=== PATIENT | male | born 1970 | race Caucasian/White ===

== ENCOUNTER → 2020-01-27 12:01 | Outpatient (CLI) | payer BC, SELFPAY ==
[2020-01-27 12:13] LABS: Adenovirus,PCR Not Detected (NotDetected); Bordetella Pertussis Not Detected (NotDetected); Chlamydophila Pneumoniae, PCR Not Detected (NotDetected); Coronavirus 229E Not Detected (NotDetected); Coronavirus NL63 Not Detected (NotDetected); Coronavirus OC43 Not Detected (NotDetected); Coronovirus HKU1,PCR Not Detected (NotDetected); Human Metapneumovirus Not Detected (NotDetected); Influenza A, PCR Not Detected (NotDetected); Influenza AH1, 2009 Not Detected (NotDetected); Influenza AH1, PCR Not Detected (NotDetected); Influenza AH3,PCR Not Detected (NotDetected); Influenza B, PCR Not Detected (NotDetected); Mycoplasma Pneumoniae, PCR Not Detected (NotDetected); Parainfluenza 1, PCR Not Detected (NotDetected); Parainfluenza 2, PCR Not Detected (NotDetected); Parainfluenza 3, PCR Not Detected (NotDetected); Parainfluenza 4, PCR Not Detected (NotDetected); Respiratory Syncytial Virus Not Detected (NotDetected); Rhinovirus/Enterovirus Not Detected (NotDetected)
[2020-01-27 12:19] LABS: Microscopic, Urine URINE MICROSCOPIC (MICROSCOPIC)
[2020-01-27 13:03] LABS: Basophils # 0.1 K/mm3 (0-0.2); Basophils % 0.8 % (0.1-2.0); Eosinophils # 0.1 K/mm3 (0.0-0.4); Eosinophils % 1.4 % (0.1-12.0); Hematocrit 46.9 % (42.0-52.0); Hemoglobin 16.2 g/dL (14.1-18.0); Lymphocytes # 1.4 K/mm3 (0.7-4.5); Mean Corpuscular HGB Conc 34.5 g/dL (31.8-35.4); Mean Corpuscular Hemoglobin 31.3 pg (27.0-31.2); Mean Corpuscular Volume 90.7 fl (80-94); Mean Platelet Volume 7.5 fl (7.4-10.4); Monocytes # 0.4 K/mm3 (0.1-1.0); Neutrophils % 66.8 % (37.0-80.0); Platelet Count 265 K/mm3 (142-424); Red Blood Count 5.17 M/mm3 (4.60-6.20)
[2020-01-27 14:17] LABS: Appearance,Urine CLEAR (Clear); Bilirubin,Urine Negative (Negative); Blood, Urine Negative (Negative); Color,Urine YELLOW (Yellow); Glucose,Urine (UA) Negative (Negative); Ketones,Urine Negative (Negative); Leukocyte Esterase,Urine Negative (Negative); Nitrate,Urine Negative (Negative); Protein,Urine Negative (Negative); Specific Gravity, Urine 1.015 (1.005-1.030); Urobilinogen,Urine 0.2 EU/dl (0.2)
[2020-01-27 14:22] LABS: Alanine Aminotransferase 16 U/L (12-78); Albumin Level 4.4 g/dl (3.5-5.0); Albumin/Globulin Ratio 1.4 (1.1-1.8); Alkaline Phosphatase 63 U/L (38-126); Anion Gap 11.5 mEq/L (5-15); Aspartate Amino Transferase 23 U/L (17-59); Blood Urea Nitrogen 14 mg/dl (9-20); Calcium 9.4 mg/dl (8.4-10.2); Carbon Dioxide 31 mmol/L (22.0-30.0); Chloride 100 mmol/L (98-107); Estimated Glomerular Filt Rate 102 ml/min (>60); GFR (African American) 124 ML/MIN (>60); Globulin 3.1 g/dL (1.3-3.2); Glucose 98 mg/dl (74-100); Potassium 4.5 mmoL/L (3.5-5.1); Sodium 138 mmol/L (136-145); Total Protein,Serum 7.5 g/dl (6.3-8.2)
[2020-01-27 14:28] LABS: C-Reactive Protein 1.5 mg/L (0-4)
[2020-01-27 14:37] LABS: Hemoglobin A1C 5.2 % (4.0-6.0)
[2020-01-27 14:38] LABS: Squamous Epithelial Cell,Urine Occasional #/hpf (0-5)
[2020-01-27 14:39] LABS: Free Thyroxine Index 3.1 ug/dL (5.93-13.13); T4 (Thyroxine) 8.6 ug/dl (5.53-11.0); Triiodothryronine (T3) Uptake 36 % (23.5-40.5)
[2020-01-27 14:40] LABS: 25-OH Vitamin D, Total 25.7 ng/mL (30-100)
[2020-01-27 14:53] LABS: Thyroid Stimulating Hormone 1.17 uIU/mL (0.465-4.68)
[2020-01-27 15:02] LABS: Erythrocyte Sedimentation Rate 19 mm/hr (0-15)
[2020-01-27 16:24] LABS: Vitamin B12 237 pg/mL (239-931)
[2020-01-28 08:32] LABS: Coronavirus 19 IgG Antibody Negative (Negative); Coronavirus 19 IgM Antibody Negative (Negative)
== END ==
PROVIDERS: PCP Internal Medicine Adolescent Medicine; Visit Provider Internal Medicine Adolescent Medicine
DX: Z03.818 Encounter for observation for suspected exposure to other biological agents ruled out (principal); G60.9 Hereditary and idiopathic neuropathy, unspecified; E55.9 Vitamin D deficiency, unspecified
CPT/HCPCS: 36415; 80053; 81001; 82306; 82607; 83036; 84436; 84443; 84479; 85025; 85651; 86140; 86328; 87486; 87581; 87633; 87798; U0003

== ENCOUNTER → 2020-04-17 07:29 | Outpatient (CLI) | payer BC, SELFPAY ==
[2020-04-17 08:31] LABS: Basophils % 0.8 % (0.1-2.0); Eosinophils # 0.1 K/mm3 (0.0-0.4); Eosinophils % 2.5 % (0.1-12.0); Hematocrit 45.6 % (42.0-52.0); Hemoglobin 15.3 g/dL (14.1-18.0); Lymphocytes # 1.5 K/mm3 (0.7-4.5); Lymphocytes % 32.4 % (10-50); Mean Corpuscular HGB Conc 33.5 g/dL (31.8-35.4); Mean Corpuscular Hemoglobin 30.5 pg (27.0-31.2); Mean Corpuscular Volume 91.2 fl (80-94); Mean Platelet Volume 7.4 fl (7.4-10.4); Monocytes # 0.3 K/mm3 (0.1-1.0); Neutrophils # 2.7 K/mm3 (1.8-7.8); Neutrophils % 57.3 % (37.0-80.0); Platelet Count 230 K/mm3 (142-424); White Blood Count 4.7 K/mm3 (4.8-10.8)
[2020-04-17 08:53] LABS: Alanine Aminotransferase 18 U/L (12-78); Albumin Level 4.3 g/dl (3.5-5.0); Albumin/Globulin Ratio 1.4 (1.1-1.8); Alkaline Phosphatase 58 U/L (38-126); Anion Gap 7.2 mEq/L (5-15); Aspartate Amino Transferase 26 U/L (17-59); Bilirubin,Total 1.1 mg/dl (0.2-1.3); Blood Urea Nitrogen 15 mg/dl (9-20); Calcium 9.4 mg/dl (8.4-10.2); Carbon Dioxide 31 mmol/L (22.0-30.0); Chloride 104 mmol/L (98-107); Chol/HDL Ratio 3.9 (1-3.5); Cholesterol 205 mg/dl (140-200); Estimated Glomerular Filt Rate 89 ml/min (>60); GFR (African American) 108 ML/MIN (>60); Glucose 115 mg/dl (74-100); HDL Cholesterol 53 mg/dl (40-60); Potassium 4.2 mmoL/L (3.5-5.1); Sodium 138 mmol/L (136-145); Total Protein,Serum 7.3 g/dl (6.3-8.2); Triglycerides 132 mg/dl (30-150); VLDL Cholesterol 26 mg/dL (0-40)
[2020-04-17 09:05] LABS: Direct LDL Cholesterol 127.71 mg/dL (100-129)
[2020-04-17 09:24] LABS: Prostate Specific Ag Screen 0.8 ng/ml (0.0-4.0)
[2020-04-17 09:42] LABS: Vitamin B12 458 pg/mL (239-931)
== END ==
PROVIDERS: Visit Provider Internal Medicine Adolescent Medicine
DX: Z00.00 Encounter for general adult medical examination without abnormal findings (principal); E53.8 Deficiency of other specified B group vitamins
CPT/HCPCS: 36415; 80053; 80061; 82607; 85025; G0103

== ENCOUNTER → 2020-04-23 10:01 | Outpatient (CLI) | payer BC, SELFPAY ==
[2020-04-23 10:51] LABS: Hemoglobin A1C 5.4 % (4.0-6.0)
== END ==
PROVIDERS: Visit Provider Internal Medicine Adolescent Medicine
DX: R73.09 Other abnormal glucose (principal)
CPT/HCPCS: 36415; 83036

== ENCOUNTER → 2020-05-12 08:53 | Outpatient (POV) | payer BC, SELFPAY | PROVIDERS: Visit Provider Dermatology | DX: Z00.00 Encounter for general adult medical examination without abnormal findings (principal) ==

== ENCOUNTER → 2021-07-22 15:26 | Outpatient (CLI) | payer BC, SELFPAY ==
--- NOTE | 2021-07-22 15:35 | XR_ITS ---
FINAL REPORT CLINICAL HISTORY: LEFT FOOT PAIN NEAR 2ND AND 3RD METATARSALS FINDINGS: LEFT FOOT Three views were obtained. There is no acute fracture or dislocation. There are mild degenerative changes. A plantar calcaneal spur is noted. No soft tissue abnormality is identified. IMPRESSION: No acute process. Reviewed, Interpreted and Dictated by Ric Snow III, MD Transcribed by Maribel Berger Authenticated by Ric Snow III, MD on 07/22/2021 04:49:18 PM [facility]
== END ==
PROVIDERS: PCP Internal Medicine Adolescent Medicine; Visit Provider Internal Medicine Adolescent Medicine
DX: M79.672 Pain in left foot (principal)
CPT/HCPCS: 73630

== ENCOUNTER → 2021-09-21 10:00 | Outpatient (CLI) | payer BC, SELFPAY ==
[2021-09-21 10:39] LABS: Basophils # 0.1 K/mm3 (0-0.2); Basophils % 1.5 % (0.1-2.0); Eosinophils # 0.1 K/mm3 (0.0-0.4); Eosinophils % 1.9 % (0.1-12.0); Hematocrit 49.1 % (42.0-52.0); Hemoglobin 16.2 g/dL (14.1-18.0); Lymphocytes # 1.2 K/mm3 (0.7-4.5); Lymphocytes % 28.4 % (10-50); Mean Corpuscular Volume 93.9 fl (80-94); Mean Platelet Volume 8.3 fl (7.4-10.4); Monocytes # 0.3 K/mm3 (0.1-1.0); Monocytes % 7.5 % (1.7-9.3); Neutrophils # 2.6 K/mm3 (1.8-7.8); Neutrophils % 60.7 % (37.0-80.0); Platelet Count 246 K/mm3 (142-424); Red Blood Count 5.23 M/mm3 (4.60-6.20); Red Cell Distribution Width 13.6 % (11.5-17.5); White Blood Count 4.3 K/mm3 (4.8-10.8)
[2021-09-21 11:18] LABS: Alanine Aminotransferase 18 U/L (12-78); Albumin Level 4.3 g/dl (3.5-5.0); Albumin/Globulin Ratio 1.4 (1.1-1.8); Alkaline Phosphatase 62 U/L (38-126); Anion Gap 11.7 mEq/L (5-15); Aspartate Amino Transferase 26 U/L (17-59); Blood Urea Nitrogen 13 mg/dl (9-20); Calcium 9.3 mg/dl (8.4-10.2); Carbon Dioxide 27 mmol/L (22.0-30.0); Chloride 104 mmol/L (98-107); Chol/HDL Ratio 4.1 (1-3.5); Cholesterol 204 mg/dl (140-200); Estimated Glomerular Filt Rate 102 ml/min (>60); GFR (African American) 123 ML/MIN (>60); Globulin 3.1 g/dL (1.3-3.2); Glucose 111 mg/dl (74-100); HDL Cholesterol 50 mg/dl (40-60); Potassium 4.7 mmoL/L (3.5-5.1); Sodium 138 mmol/L (136-145); Total Protein,Serum 7.4 g/dl (6.3-8.2); Triglycerides 116 mg/dl (30-150); VLDL Cholesterol 23 mg/dL (0-40)
[2021-09-21 11:29] LABS: Direct LDL Cholesterol 119.85 mg/dL (100-129)
[2021-09-21 11:35] LABS: Free Thyroxine Index 3.4 ug/dL (5.93-13.13); T4 (Thyroxine) 10.2 ug/dl (5.53-11.0); Triiodothryronine (T3) Uptake 33 % (23.5-40.5)
[2021-09-21 11:36] LABS: 25-OH Vitamin D, Total 40.8 ng/mL (30-100)
[2021-09-21 12:10] LABS: Vitamin B12 216 pg/mL (239-931)
== END ==
PROVIDERS: PCP Internal Medicine Adolescent Medicine; Visit Provider Internal Medicine Adolescent Medicine
DX: Z00.00 Encounter for general adult medical examination without abnormal findings (principal); E55.9 Vitamin D deficiency, unspecified; E53.8 Deficiency of other specified B group vitamins
CPT/HCPCS: 36415; 80053; 80061; 82306; 82607; 84436; 84443; 84479; 85025

== ENCOUNTER → 2023-04-17 13:34 | Outpatient (CLI) | payer BC, SELFPAY | PROVIDERS: PCP Internal Medicine Adolescent Medicine; Visit Provider Internal Medicine Adolescent Medicine | DX: G47.33 Obstructive sleep apnea (adult) (pediatric) (principal); R06.83 Snoring; R40.0 Somnolence | CPT/HCPCS: G0399 ==

== ENCOUNTER 2024-10-10 13:59 | Outpatient (CLI) | payer BC, SELFPAY ==
--- OUTSIDE RECORDS SUMMARY | 2024-04-13 17:30 | XMS_ITS ---
Author Organization [facility] Address [address] [place] [address] Care Team Providers Care Svp Research And Strategic Analysis Name Role Phone AGUSTIN DO, DONAL Unavailable Unavailable Migration, Provider Unavailable Unavailable REASON FOR VISIT Multum To Medispan Conversion Encounter Medications Medication SIG (Take, Route, Frequency, Duration) Notes Start Date End Date Status Amoxicillin-Pot Clavulanate 875-125 MG 1 tab(s) orally every 12 hours; Duration: 10 day(s) 11/25/2013 Active Cyanocobalamin 1000 MCG/ML 0 intramuscularly once a month Active Medrol DIRECTED ORAL; Duration: 5 DAYS *Please review and pick correct strength-formulat ion from Medispan options. If intended option is not shown, discontinue and re-order from Quick Search* 11/25/2013 Active Encounters Encounter Location Date Provider Diagnosis [facility] [address] [place] [phone] 04/13/2024 Provider Migration Acute sinusitis NOS 461.9 and Dysfunction of eustachian tube 381.81 Assessments Encounter Date Diagnosis (ICD Code) Assessment Notes Treatment Notes Treatment Clinical Notes Section Notes 04/13/2024 Acute sinusitis NOS (ICD9-CM - 461.9) 04/13/2024 Dysfunction of eustachian tube (ICD9-CM - 381.81) Plan Of Treatment Medication Medication Name Sig Start Date Stop Date Notes Amoxicillin-Pot Clavulanate 875-125 MG 1 tab(s) orally every 12 hours; Duration: 10 day(s) 11/25/2013 Medrol DIRECTED ORAL; Duration: 5 DAYS 11/25/2013 *Please review and pick correct strength-formulation from Medispan options. If intended option is not shown, discontinue and re-order from Quick Search* Progress Notes * KANDICE DENIS EDOB: [birth year] (54 yo M)Acc No.[id number]:04/13/2024 Patient: KANDICE ISAAC Provider: Kourtney Morris :1970 A ge:54 Y S ex:Male Date:04/13/2024 Address:[place] [address], [id number] Subjective: * Chief Complaints: * 1 . Multum To Medispan Conversion Encounter. * Medical History: * Medications: T aking Cyanocobalamin 1000 MCG/ML Solution 0 intramuscularly once a month Objective: * Vitals: Assessment: * Assessment: 1. A cute sinusitis NOS - 461.9 (Primary) 2 . D ysfunction of eustachian tube - 381.81 Plan: * Treatment: 2. D ysfunction of eustachian tube Start Medrol, DIRECTED, ORAL, 5 DAYS, 1, Refills 0, Notes to Pharmacist: *Please review and pick correct [facility]. If intended option is not shown, discontinue and re-order from Quick Search*. * Billing Information: * Visit Code: * Procedure Codes: * Electronic signature of Prov ider Migration on 10/10/2024 at 02:02 PM EDT Sign off status: Pending * Provider: Kourtney Morris Date: 04/13/2024 Generated for Kitty paige/Laura/Evyitting on: 0 10/10/2024 02:02 PM EDT
--- OUTSIDE RECORDS SUMMARY | 2024-10-10 14:03 | XMS_ITS | Clinical Summary ---
[facility] Address [address] [place] [address] Care Team Providers Care Ldr Rn Name Role Phone Sandeep Polo MD Primary Care Provider [phone] Allergies No known active allergies Medications atorvastatin (LIPITOR) 80 MG tablet Take 1 tablet by mouth Every Night. 90 tablet 03/12/2023 Active aspirin 81 MG EC tablet Take 1 tablet by mouth Daily. 90 tablet 03/12/2023 Active Active Problems Problem Noted Date Diagnosed Date B12 deficiency 03/11/2023 Pernicious anemia 03/11/2023 Resolved Problems Problem Noted Date Diagnosed Date Resolved Date Left upper extremity numbness 03/11/2023 03/12/2023 Numbness and tingling of left side of face 03/11/2023 03/12/2023 Social History Tobacco Use Types Packs/Day Years Used Date Smoking Tobacco: Never Smokeless Tobacco: Never Tobacco Cessation:Counseling Given: Not Answered Alcohol Use Standard Drinks/Week Comments Yes 0 (1 standard drink = 0.6 oz pur e alcohol) AUDIT-C Answer Date Recorded Q1: How often do you have a drink containing alc ohol? 2-3 times a week 03/11/2023 Q2: How many drinks containi ng alcohol do you have on a typical day when you are drinking? 1 or 2 03/11/2023 Q3: How often do you have si x or more drinks on one occasion? Never 03/11/2023 Abuse Screen Answer Date Recorded Feels Unsafe at Home or Work/School no 03/11/2023 Feels Threatened by Someone no 02/12 Does Anyone Try to Keep You From Having Contact with Others or Doing Things Outside Your Home? no 03/11/2023 Physical Signs of Abuse Present no 03/11/2023 Housing Stability Answer Date Recorded Current Living Arrangements home 02/12 Potentially Unsafe Housing Conditions Not on guera e 03/11/2023 Family and Community Support Answer Shoaib e Recorded Help with Day-to-Day Activities Not on file 12/21/2022 Lonely or Isolated Not on file 12/21/2022 Employment Answer Date Recorded Do you want help finding or keeping work or a regine b? Not on file 12/21/2022 Disabilities Answer Date Recorded Difficulty Concentrating, Remembering or Making Decisions no 03/11/2023 Difficulty Managing Errands Independently no 03/11/2023 Education Answer Date Recorded Help with school or training? Not on file Preferred Language Not on file 12/21/2022 Sex and Gender Information Value Date Recorded Sex Assigned at Not on file Legal Sex Male 11:07 AM EST Gender Identity Not on file Sexual Orientation Not on file Last Filed Vital Signs Vital Sign Reading Time Taken Comments Blood Pressure 140/91 03/12/2023 10:40 AM EST Pulse 76 03/12/2023 10:40 AM EST Temperature 36.6 C (97.8 F) 03/12/2023 7:54 AM EST Respiratory Rate 16 03/12/2023 10:40 AM EST Oxygen Saturation 95% 03/12/2023 3:38 AM EST Inhaled Oxygen Concentration - - Weight 127 kg (280 lb) 03/11/2023 5:06 PM EST Height 185.4 cm (6' 1 ) 03/11/2023 5:06 PM EST Body Mass Index 36.94 03/11/2023 5:06 PM EST Plan of Treatment Health Maintenance Due Date Last Done Comments ANNUAL PHYSICAL 1970 HEPATITIS C SCREENING 1970 TDAP/TD VACCINES (1 - Tdap) 1989 COLOGUARD 2015 COLON CANCER SCREENING 5 YEA R SIGMOIDOSCOPY 2015 COLONOSCOPY [address] CANCER SCREENING [address] COLONOGRAPHY 2015 FECAL OCCULT BLOOD TEST 2015 FIT Testing (1 year) 2015 Pneumococcal Vaccine 50+ (1 of 1 - PCV) 01/02/2020 ZOSTER VACCINE (1 of 2) 01/02/2020 COVID-19 Vaccine (4 2023-2 5 season) 2023 01/20/2021, 05/01/2020, 04/01/2020 INFLUENZA VACCINE 12/11/2024 01/18/2022, , 12/30/2019, Additional history exists Insurance [place] [id number] [employer] Advance Directives * CPR (Attempt to Resuscitate) (Latest Code Status on File) Date Activated Date Inactivated Comments 03/11/2023 1:05 PM 03/12/2023 8:10 PM Question Answer Comments Code Status (Patient has no pulse and is not breathing): CPR (Attempt to Resuscitate) Medical Interventions (Patie nt has pulse or is breathing): Full Support Level Of Support Discussed With: Patient Care Teams Ldr Rn Relationship Specialty Start Date End Date Sandeep Polo MD [address] [facility] [address] [place] [address] PCP - General Adolescent Medicine 03/11/23
--- OUTSIDE RECORDS SUMMARY | 2024-10-10 14:03 | XMS_ITS | Encounter Summary ---
Author Organization [facility] Address [address] [place] [address] Care Team Providers Care [employer]oured [employer] Officer Name Role Phone [place], Eliot Regalado DO Primary Care Provider [phone] Reason for Referral * Consultation (Routine) - Closed Specialty Diagnoses / Procedures Referred By Huan t Referred To Contact Cardiology Diagnoses Systolic congestive heart failure, unspecified HF chronicity (CMS/HCC) Sandeep Polo MD [address] [facility] [address] [place] [address] Phone: tel: fax: Referral ID Status Reason Start Date Expiration Date V isits Requested Visits Authorized [id number] Closed Specialty Services Required 03/14/2023 09/12/2024 1 1 Encounter Details Date Type Department Care Team (Late st Contact Info) Description 03/14/2023 Community [facility] [address] [place] [address] Sandeep Polo MD [address] [address] Systolic congestive heart failure, unspecified HF chronicity (CMS/HCC) (Primary Dx) Social History Tobacco Use Types Packs/Day Years Used Date Smoking Tobacco: Never Alcohol Use Standard Drinks/Week Comments Not Currently 0 (1 standard drink = 0.6 oz pure alcohol) Alcoholic Drinks/day: Former consumption of alcohol Sex and Gender Information Value Date Recorded Sex Assigned at Not on file Legal Sex Male 7:47 PM EDT Gender Identity Not on file Sexual Orientation Not on file documented as of this encounter Plan of Treatment Scheduled Referrals Name Type Priority Associated Diagnoses Orde r Schedule Ambulatory referral to Cardiology Outpatient Referral Routine Systolic congestive heart failure, unspecified HF chronicity (CMS/HCC) Expected: 03/14/2023 (Approximate), Expires: 09/11/2024 documented as of this encounter Visit Diagnoses Diagnosis Systolic congestive heart failure, unspecified HF chronicity (CMS/HCC)- Primary documented in this encounter Care Teams [employer] Officer Relationship Specialty Start Date End Date Eliot [place] [address] PCP - General 07/24/20 documented as of this encounter
--- OUTSIDE RECORDS SUMMARY | 2024-10-10 14:03 | XMS_ITS | Encounter Summary ---
Author Organization Healthcare Address [address] [id number] Care Team Providers Care Supervisor Modern Languages Name Role Phone Eliot Alfonso DO Primary Care Provider [phone] Encounter Details Date Type Department Care Team (Late st Contact Info) Description 03/11/2023 Orders Only External Location [address] [place] [address] Bill Tierney MD [address] [place] [address] Social History Tobacco Use Types Packs/Day Years [...] as of this encounter Plan of Treatment Not on file documented as of this encounter Procedures Procedure Name Priority Date/Time Associated Diagnosis Comments CT NEURO OUTSIDE IMAGES 03/11/2023 11:49 AM EST documented in this encounter Results * CT NEURO OUTSIDE IMAGES (03/11/2023 11:49 AM EST) Anatomical Region Laterality Modality Computed Tomogra phy 03/11/2023 11:4 9 AM EST us Bill Tierney MD IMG CT PROCEDURES Final Result documented in this encounter Visit Diagnoses Not on filedocumented in this encounter Care Teams Supervisor Modern Languages Relationship Specialty Start Date End Date [place] [address] PCP - General 07/24/20 documented as of this encounter
--- OUTSIDE RECORDS SUMMARY | 2024-10-10 14:03 | XMS_ITS | Encounter Summary ---
Author Organization Healthcare Address [address] [id number] Care Team Providers Care Senior Managing Director Name Role Phone Eliot Alfonso DO Primary Care Provider [phone] Encounter Details Date Type Department Care Team (Late st Contact Info) Description 03/11/2023 Orders Only External Location [address] [place] [address] Bill Tierney MD [address] [place] [address] Social History Tobacco Use Types Packs/Day Years [...] Diagnosis Comments CT NEURO OUTSIDE IMAGES 03/11/2023 11:44 AM EST documented in this encounter Results * CT NEURO OUTSIDE IMAGES (03/11/2023 11:44 AM EST) Anatomical Region Laterality Modality Computed Tomogra phy 03/11/2023 11:4 4 AM EST us Bill Tierney MD IMG CT PROCEDURES Final Result documented in this encounter Visit Diagnoses Not on filedocumented in this encounter Care Teams Senior Managing Director Relationship Specialty Start Date End Date [place] [address] PCP - General 07/24/20 documented as of this encounter
--- OUTSIDE RECORDS SUMMARY | 2024-10-10 14:03 | XMS_ITS | Encounter Summary ---
Author Organization Healthcare Address [address] [id number] Care Team Providers Care Veneer Jointer Name Role Phone Eliot Alfonso DO Primary Care Provider [phone] Encounter Details Date Type Department Care Team (Late st Contact Info) Description 03/11/2023 Orders Only External Location [address] [place] [address] Bill Tierney MD [address] [place] [address] Social History Tobacco Use Types Packs/Day Years [...] on filedocumented in this encounter Care Teams Veneer Jointer Relationship Specialty Start Date End Date [place] [address] PCP - General 07/24/20 documented as of this encounter
--- OUTSIDE RECORDS SUMMARY | 2024-10-10 14:03 | XMS_ITS | Clinical Summary ---
Author Organization Healthcare Address [address] [place] [address] Care Team Providers Care Hydro Operator Name Role Phone [place], Eliot Fabricio Primary Care Provider [phone] Allergies No known active allergies Medications aspirin 81 MG EC tablet Take 1 tablet (81 mg) by mouth 1 (one) time each day. 03/12/2023 Active atorvastatin (Lipitor) 80 MG tablet Take 1 tablet (80 mg) by mouth 1 (one) time each day. 03/12/2023 Active cholecalciferol (Vitamin D-3) 25 MCG (1000 UT) capsule Take 1 capsule (1,000 Units) by mouth 1 (one) time each day. 03/04/2014 Active cyanocobalamin (Vitamin B-12) 1000 MCG/ML injection 1 mL (1,000 mcg) every 14 (fourteen) days. 01/23/2014 Active omeprazole (PriLOSEC) [address] capsule Take 1 capsule (20 mg) by mouth if needed. 02/27/2014 Active venlafaxine XR (Effexor-XR) 75 MG 24 hr capsule Take 1 capsule (75 mg) by mouth 1 (one) time each day. 01/24/2014 Active lisinopril 10 MG tablet Take 1 tablet (10 mg) by mouth 1 (one) time each day. 03/15/2023 Active Active Problems Problem Noted Date Diagnosed Date B12 deficiency 03/11/2023 Pernicious anemia 03/11/2023 Fasciculations 02/27/2014 Headache 02/27/2014 Loss of balance 02/27/2014 Numbness and tingling of both legs 02/27/2014 Numbness in both hands 02/27/2014 Numbness and tingling of foot 02/27/2014 Peripheral neuropathy 02/27/2014 Tinnitus 02/25/2014 Anal lesion 01/23/2014 Full incontinence of feces 01/23/2014 Prostatitis, chronic 01/16/2012 Family History Medical History Relation Name Comments Colon cancer Father Conversions - Other Father Cardiac arrhythmia due to congenital heart disease Heart attack Maternal Grandfather Relation Name Status Comments Father Maternal Grandfather Social History Tobacco Use Types Packs/Day Years Used Date Smoking Tobacco: Never Smokeless Tobacco: Never Alcohol Use Standard Drinks/Week Comments Not Currently 0 (1 standard drink = 0.6 oz pure alcohol) Former consumption of alcohol PHQ-2 Answer Date Recorded Patient Health Questionnaire-2 Score 0 05/30/2023 Sex and Gender Information Value Date Recorded Sex Assigned at Not on file Legal Sex Male 7:47 PM EDT Gender Identity Not on file Sexual Orientation Not on file Last Filed Vital Signs Vital Sign Reading Time Taken Comments Blood Pressure 110/78 05/30/2023 1:54 PM EDT Pulse 76 05/30/2023 1:54 PM EDT Temperature - - Respiratory Rate - - Oxygen Saturation 97% 05/30/2023 1:54 PM EDT Inhaled Oxygen Concentration - - Weight 129 kg (285 lb 7.9 oz) 05/30/2023 1:54 PM EDT Height 185.4 cm (6' 1 ) 05/30/2023 1:54 PM EDT Body Mass Index 37.67 05/30/2023 1:54 PM EDT Plan of Treatment Health Maintenance Due Date Last Done Comments [facility]-HIV Screening 1970 [facility]-Hepatitis C Screening 1970 [facility]-/Child/Adol SDOH Screenings 1970 [facility]- SDOH Screenings 01/02/1988 [facility]-Adult SDOH Screenings 01/02/1988 [facility]-DTaP,Tdap,and Td Vaccines (1 - Tdap) 1989 [facility]-Hepatitis B Vaccines (1 of 3 - 19+ 3-dose series) 1989 CT Colonography 2015 Colonoscopy 2015 FIT-DNA 2015 FIT 2015 FOBT 2015 Sigmoidoscopy 2015 [facility]-Colorectal Cancer Screening 2015 [facility]-Pneumococcal Vaccine: 50+ Years (1 of 1 - PCV) 01/02/2020 [facility]-Zoster Vaccines (1 of 2) 01/02/2020 [id number] Vaccine (4 - season) 2023 01/20/2021, 05/01/2020, 04/01/2020 [facility]-Depression Screening 05/29/2024 05/30/2023 [facility]-Influenza Vaccine (#1) 11/11/202401/18, 01/05/2021, 12/30/2019, Additional history exists [facility]-Obesity Intervention Completed 05/30/2023, 03/13 HPV Vaccines Aged Out No longer eligi ble based on patient's age to complete this topic [facility]-HIB Vaccines Aged Out No longer e ligible based on patient's age to complete this topic [facility]-Hepatitis A Vaccines Aged Out No longer eligible based on patient's age to complete this topic [facility]-IPV Vaccines Aged Out No longer e ligible based on patient's age to complete this topic [facility]-Rotavirus Vaccines Aged Out No lo nger eligible based on patient's age to complete [place] [id number] [facility] Care Teams Hydro Operator Relationship Specialty Start Date End Date Eliot Alfonso DO [place] [address] PCP - General 07/24/20
--- NOTE | 2024-10-10 14:12 | MR_ITS ---
FINAL REPORT TECHNIQUE: Multiplanar and multisequence imaging of the cervical spine was obtained. CLINICAL HISTORY: NECK PAIN/NUMBNESS down left arm , new onset FINDINGS: Alignment is normal. Vertebral body height is preserved. Signal intensity within the substance of the spinal cord is normal. There are Modic changes at C5-6. Bone marrow edema is otherwise unremarkable. No acute paraspinal abnormality. C2/3: An annular disc bulge is present with mild facet osteoarthropathy and mild left neuroforaminal narrowing. C3/4: Central disc protrusion superimposed on an annular disc bulge, facet arthropathy and osteophytes. Mild central stenosis and bilateral neuroforaminal narrowing. C4/5: An annular disc bulge is present with degenerative endplate changes and facet osteoarthropathy. Mild central stenosis with mild to moderate bilateral neuroforaminal narrowing. C5/6: An annular disc bulge is present with degenerative endplate changes and facet osteoarthropathy. Moderate central stenosis and severe bilateral neuroforaminal narrowing. C6/7: An annular disc bulge is present with degenerative endplate changes and facet osteoarthropathy. Mild central stenosis with mild bilateral neuroforaminal narrowing, right greater than left. C7/T1: There is no focal disc herniation, central stenosis or neural foraminal narrowing. IMPRESSION: Multilevel degenerative disc disease, most pronounced at C5-6. Reviewed, Interpreted and Dictated by Cinthia Frankel MD Transcribed by Maribel Berger Authenticated and [facility]
== END 2024-10-10 23:59 | disposition home or self-care (01) ==
LOC: RAD 14:01
PROVIDERS: PCP Internal Medicine Adolescent Medicine; Visit Provider Internal Medicine Adolescent Medicine
DX: M50.322 Other cervical disc degeneration at C5-C6 level (principal); M50.321 Other cervical disc degeneration at C4-C5 level; M50.323 Other cervical disc degeneration at C6-C7 level; M47.812 Spondylosis without myelopathy or radiculopathy, cervical region; M48.02 Spinal stenosis, cervical region
CPT/HCPCS: 72141